=== PATIENT | female | born 1955 | race Caucasian/White ===

== ENCOUNTER 2021-11-23 14:13 | Emergency (ER) | payer OTHER ==
[~2021-11-23] VITALS: Ht 162.6 cm; Wt 72.6 kg
[2021-11-23 16:11] VITALS: BP_SYST 152
--- NOTE | 2021-11-23 16:49 | NUR ---
DR STARKEY IN TRIAGE FOR EXAM
[2021-11-23] MEDS ORDERED: KETOROLAC TROMETHAMINE 30 MG VIAL IM ONE (17:15)
--- NOTE | 2021-11-23 17:36 | NUR ---
MEDICATED ORDERED, WILL CONT TO MONITOR.
[2021-11-23 19:56] VITALS: BP_SYST 147
--- NOTE | 2021-11-23 20:00 | NUR ---
Received pt in waiting room at 1914, VSS, a/ox4. Pt d/c at 1954, all questions answered, will f/u with PCP. Left a/ox4, steady gait.
== END 2021-11-23 19:56 | disposition home or self-care (01) ==
LOC: SED 14:13
DX: S00.83XA Contusion of other part of head, initial encounter (principal); E11.9 Type 2 diabetes mellitus without complications; I10 Essential (primary) hypertension; Z79.899 Other long term (current) drug therapy; W01.0XXA Fall on same level from slipping, tripping and stumbling without subsequent striking against object, initial encounter; Y93.89 Activity, other specified; Y92.89 Other specified places as the place of occurrence of the external cause; Y99.8 Other external cause status
CPT/HCPCS: 99284; 70450; 70486; 72125; 96372; 76376; J1885

== ENCOUNTER 2022-04-01 18:08 | Emergency (ER) | payer BC, OTHER ==
[~2022-04-01] VITALS: Ht 157.5 cm; Wt 63.5 kg
[2022-04-01 18:28] VITALS: BP_SYST 155
--- NOTE | 2022-04-01 18:31 | NUR ---
PT REPORTS SHE MISSED A STEP AND FELL, HIT RT SIDE OF HEAD, DENIES LOC. C/O RT HAND/WRIST PAIN. XRAYS ORDERED FOR THAT. WAIITNG DFOR ER MD RAMIREZ TO SEE IF SHE NEED CT HEAD SINCE PT VERBALIZES SHE FELL ON CEMENT. REDNESS, SMALL HEMATOMA NOTED. DENIES CHANGES IN VISION, SLIGHT HEADACHE.
--- NOTE | 2022-04-01 19:58 | NUR ---
ER IN TRIAGE examining patient.
[2022-04-01] MEDS ORDERED: KETOROLAC TROMETHAMINE 30 MG VIAL IM ONE (21:00)
[2022-04-01] MEDS ORDERED: IBUP-1969 PO (21:09)
[2022-04-01 21:57] VITALS: BP_SYST 142
--- NOTE | 2022-04-01 21:57 | NUR ---
Patient given written and verbal discharge instructions and verbalizes understanding. ER MD discussed with patient the results and treatment provided. Patient in stable condition. ID arm band removed. Rx of IBUPROFEN given. Patient educated on pain management and to follow up with PMD. Pain Scale 0/10 Opportunity for questions provided and answered. Medication side effect fact sheet provided.
== END 2022-04-01 21:57 | disposition home or self-care (01) ==
LOC: SED 18:08
DX: S63.501A Unspecified sprain of right wrist, initial encounter (principal); S00.83XA Contusion of other part of head, initial encounter; E11.9 Type 2 diabetes mellitus without complications; I10 Essential (primary) hypertension; Z79.899 Other long term (current) drug therapy; W01.0XXA Fall on same level from slipping, tripping and stumbling without subsequent striking against object, initial encounter; Y93.89 Activity, other specified; Y92.89 Other specified places as the place of occurrence of the external cause; Y99.8 Other external cause status
CPT/HCPCS: 99284; 70450; 73110; 73120; 76376; 96372; 29125; J1885